=== PATIENT | male | born 1955 | race Caucasian/White ===

== ENCOUNTER 2018-01-17 17:27 | Inpatient (IN) | payer OTHER ==
[2018-01-17] MEDS ORDERED: oxyCODONE TAB* 5 MG TAB PO ONE (17:58)
--- NOTE | 2018-01-17 18:29 | RAD ---
Indication: Left hip injury after fall 2 views of left hip and an AP view the pelvis demonstrates suggestion of an impacted fracture of the left femoral neck. Hip joint demonstrates degenerative change. Pelvic ring is intact. IMPRESSION: Likely impacted fracture of left femoral neck.
--- NOTE | 2018-01-17 18:56 | ED ---
Lower Extremity - HPI Summary HPI Summary: Patient complains of mechanical fall onto left side with subsequent left hip pain. Patient states unable to ambulate. Denies any other injury or pain. No anti-coag. Medical history is none. - History of Current Complaint Chief Complaint: EDHipPelvisInjury Stated Complaint: LT HIP INJURY Time Seen by Provider: 01/17/18 17:38 Hx Obtained From: Patient Mechanism Of Injury: Fall From A Standing Position Onset of Pain: Immediate Onset/Duration: Hours Severity Currently: Severe Pain Intensity: 8 Pain Scale Used: 0-10 Numeric Timing: Constant Location: Is Discrete @ Character Of Pain: Throbbing Associated Signs And Symptoms: Positive: Negative Aggravating Factor(s): Movement Alleviating Factor(s): Rest Able to Bear Weight: No - Allergies/Home Medications Allergies/Adverse Reactions: Allergies Allergy/AdvReac Type Severity Reaction Status Date / Time No Known Allergies Allergy Verified 01/17/18 17:36 PMH/Surg Hx/FS Hx/Imm Hx Endocrine/Hematology History: Denies: Hx Anticoagulant Therapy, Hx Sickle Cell Disease Cardiovascular History: Denies: Other Cardiovascular Problems/Disorders Respiratory History: Reports: Hx Asthma - HAS RESCUE INHALER GI History: Denies: Other GI Disorders History: Reports: Hx Kidney Stones - 3 YRS AGO Denies: Other Problems/Disorders Musculoskeletal History: Denies: Other Musculoskeletal History Sensory History: Reports: Hx Cataracts - LEFT EYE, SMALL ONE STARTING ON RIGHT EYE, Hx Contacts or Glasses - GLASSES, Hx Glaucoma Denies: Hx Hearing Aid Opthamlomology History: Reports: Hx Cataracts - LEFT EYE, SMALL ONE STARTING ON RIGHT EYE, Hx Contacts or Glasses - GLASSES, Hx Glaucoma Neurological History: Denies: Other Neuro Impairments/Disorders - Cancer History Hx Chemotherapy: No - Surgical History Surgery Procedure, Year, and Place: 1986 - TESTICULAR TORSION, [place] , LEFT CATARACT, [facility] Hx Anesthesia Reactions: No Infectious Disease History: Yes Infectious Disease History: Denies: Traveled Outside the [place] in Last 30 Days - Social History Alcohol Use: Weekly Substance Use Type: Reports: None Smoking Status (MU): Never Smoked Tobacco Review of Systems Constitutional: Negative Eyes: Negative ENT: Negative Cardiovascular: Negative Respiratory: Negative Gastrointestinal: Negative Genitourinary: Negative Musculoskeletal: Other Skin: Negative Neurological: Negative Psychological: Normal All Other Systems Reviewed And Are Negative: Yes Physical Exam - Summary Physical Exam Summary: No ecchymosis, erythema, extra warmth, swelling, deformity noted to left hip. Mildly tender to palpation. Patient will not flex or extend left hip. PMS intact distally. Legs are equal length, nonrotated. Triage Information Reviewed: Yes Vital Signs On Initial Exam: Initial Vitals Temp Pulse Resp BP Pulse Ox 99.0 F 56 16 130/65 100 01/17/18 17:30 01/17/18 17:30 01/17/18 17:30 01/17/18 17:30 01/17/18 17:30 Vital Signs Reviewed: Yes Appearance: Positive: Well-Appearing Skin: Positive: Warm Head/Face: Positive: Normal Head/Face Inspection Eyes: Positive: Normal Neck: Positive: Supple Respiratory/Lung Sounds: Positive: Clear to Auscultation Cardiovascular: Positive: Normal Abdomen Description: Positive: Nontender Musculoskeletal: Positive: Normal Neurological: Positive: Normal Psychiatric: Positive: Normal AVPU Assessment: Alert - Plessis Coma Scale Best Eye Response: 4 - Spontaneous Best Motor Response: 6 - Obeys Commands Best Verbal Response: 5 - Oriented Coma Scale Total: 15 Diagnostics - Vital Signs Vital Signs Temp Pulse Resp BP Pulse Ox 01/17/18 17:30 99.0 F 56 16 130/65 100 - Laboratory Result Diagrams: 01/17/18 19:34 01/17/18 19:34 Lab Statement: Any lab studies that have been ordered have been reviewed, and results considered in the medical decision making process. - Radiology hip Xray Interpretation: Positive (See Comments) - Likely impacted fracture of the left small neck Radiology Interpretation Completed By: Radiologist femur Xray Interpretation: Positive (See Comments) - Fracture left femoral neck extending to greater tuberosity Radiology Interpretation Completed By: Radiologist cxr Xray Interpretation: No Acute Changes Radiology Interpretation Completed By: Radiologist - CT pelvis w/o CT Interpretation: Positive (See Comments) - Oblique fracture through the left femoral neck. Fracture fragments are slightly distracted. Fracture José Luis portions of the greater trochanter extending into the subcapital region there is no significant angulation. No significant hematoma - EKG 1 Cardiac Rate: NL EKG Rhythm: Sinus Rhythm ST Segment: Normal Ectopy: None Lower Extremity Course/Dx - Course Course Of Treatment: Patient complains of mechanical fall onto left side with subsequent left hip pain. Patient states unable to ambulate. Denies any other injury or pain. No anti-coag. Medical history is none. PE: No ecchymosis, erythema, extra warmth, swelling, deformity noted to left hip. Mildly tender to palpation. Patient will not flex or extend left hip. PMS intact distally. Legs are equal length, nonrotated. Vital signs within normal limits and stable. Labs and imaging unremarkable other than left femoral neck fracture. Discussed patient with Dr Sheehan orthopedics and Dr Chan hospitalist. Patient will be admitted. - Diagnoses Provider Diagnoses: Fracture of femoral neck, left Discharge - Sign-Out/Discharge Documenting (check all that apply): Patient Departure - Discharge Plan Condition: Stable Disposition: ADMITTED TO [facility] - Billing Disposition and Condition Condition: STABLE Disposition: Admitted to [facility]
[2018-01-17 19:47] LABS: ABS Basophils 0 10^3/ul (0-0.2); ABS Eosinophils 0.1 10^3/ul (0-0.6); ABS Lymphocytes 0.7 10^3/ul (1.0-4.8); ABS Monocytes 0.4 10^3/ul (0-0.8); ABS Neutrophils 7.6 10^3/ul (1.5-7.7); ABS Nucleated RBC 0 10^3/ul; Eosinophil % 0.9 % (0-6); Hematocrit 41 % (42-52); Hemoglobin 14.4 g/dl (14.0-18.0); Lymphocyte % 8.3 % (25-47); Mean Corpuscular HGB Conc 35 g/dl (31-36); Mean Corpuscular Hemoglobin 31 pg (27-31); Mean Corpuscular Volume 90 fL (80-94); Nucleated Red Blood Cells % 0.2; Platelet Count 185 10^3/ul (150-450); Red Blood Count 4.59 10^6/ul (4.00-5.40); Red Cell Distribution Width 14 % (10.5-15); White Blood Count 8.8 10^3/ul (3.5-10.8)
--- NOTE | 2018-01-17 19:50 | RAD ---
Indication: Preop left hip fracture. Single frontal view of the chest performed at 1932 hours was reviewed. No prior study is available for comparison. No mediastinal shift is noted. Heart is of normal size and configuration. Lung lechuga appear clear. IMPRESSION: NO ACTIVE CARDIOPULMONARY DISEASE IS NOTED.
--- NOTE | 2018-01-17 19:52 | RAD ---
Indication: Left fracture. 2 views of the left hip are reviewed. Again noted is an intertrochanteric fracture of the left femoral neck with probable extension to the greater tuberosity. This is seen on the lateral view. The remainder of the femur is otherwise unremarkable. IMPRESSION: FRACTURE OF THE NECK OF LEFT FEMUR WHICH APPEARS TO EXTEND TO THE GREATER TUBEROSITY LATERAL VIEW. THE REMAINDER OF THE FEMUR IS OTHERWISE UNREMARKABLE.
[2018-01-17 19:58] LABS: EGFR Non-African American 89.2 (>60); INR 1.01 (0.77-1.02)
[2018-01-17] MEDS ORDERED: Acetaminophen TAB* 325 MG PO PRN (20:11)
[2018-01-17] MEDS ORDERED: oxyCODONE/Acetamin 5/325 MG* TAB PO PRN (20:11)
[2018-01-17] MEDS ORDERED: Ondansetron INJ* 2 MG/ML VIAL IV PRN (20:11)
[2018-01-17] MEDS ORDERED: Cyclobenzaprine TAB* 10 MG PO PRN (20:20)
[2018-01-17] MEDS ORDERED: Albuterol HFA INHALER* 8 gm MDI INH PRN (20:20)
[2018-01-17] MEDS ORDERED: Heparin VIAL(*) 5000 UNITS/ML VIAL (FIVE THOUSAND) SUBCUT SCH (22:00)
--- NOTE | 2018-01-17 22:05 | CONS ---
CC: Dr. Sheehan CONSULTATION REPORT: DATE OF CONSULT: 01/17/18 CHIEF COMPLAINT: Left hip pain. HISTORY OF PRESENT ILLNESS: Hermes is a 62-year-old man, who fell on to his left side when trying to p ut the cover on to his pool. This occurred a few hours ago. He complains of left hip pain and some a brasions on his left knee and left arm. He was brought to the emergency room and had some x-rays, wh ich showed an impacted fracture of the femoral neck and a greater trochanteric fracture. He is other anna healthy. He denies other injuries. Denies loss of consciousness. MEDICATIONS: His only medications are: 1. Baby aspirin. 2. Calcium. PHYSICAL EXAM: He is a healthy-appearing very pleasant man in mild distress at rest. He cannot bear weight on his left lower extremity. He can move his hip but it is painful. He has a palpable dorsa lis pedis and posterior tibial pulse. There is no swelling in his left lower extremity. His neurova scular function is intact. DIAGNOSTIC STUDIES: I reviewed his x-rays, AP and lateral, of the left hip and left femur, which brooklynn w a valgus impacted femoral neck fracture plus a greater trochanteric fracture. IMPRESSION: Left hip fracture. PLAN: Plan is for CT scan to further evaluate the fracture fragments. Consulted with my colleague, Dr. Brown, who feels a trochanteric fixation nail is the best course of action. We will reevaluate a fter the CT scan and plan for surgical treatment. The surgical procedure, risks, and benefits were e xplained to the patient today. [id number]/[facility] #: [id number]
[2018-01-17] MEDS: oxyCODONE/Acetamin 5/325 MG* TAB PO PRN (22:19)
[2018-01-17] MEDS: PTO:Dorzolamide/Timolol OPTH (NF) 10 ML BOT BOTH EYES SCH (22:21)
[2018-01-17 22:57] LABS: Urine Appearance Clear; Urine Blood Negative (Negative); Urine Color Yellow; Urine Ketones Trace (Negative); Urine Protein Negative (Negative); Urine Specific Gravity 1.019 (1.010-1.030); Urine Urobilinogen Negative (Negative)
--- NOTE | 2018-01-17 23:52 | HP ---
CC: Dr. Darryn Andino * MEDICINE HISTORY AND PHYSICAL: DATE OF ADMISSION: 01/17/18 PROVIDER: Coleman Irby NP ATTENDING PHYSICIAN: Dr. Buddy Chan * (as dictated by Coleman Irby NP ). PRIMARY CARE PROVIDER: Dr. Darryn Andino. CONSULTING ORTHOPEDIC SURGEON: Dr. Floresita Sheehan. CHIEF COMPLAINT: Fall with left leg pain. HISTORY OF PRESENT ILLNESS: Mr. Perez is a 62-year-old male, who presented with left leg pain after a fall. He was attempting to close a wet pool with a cover this evening, was stepping over the diving board, misstepped, and lost his balance, and instead of falling into the pool, he went the other way, and came down on his left leg. He states that he felt immediate pain and came in for further evaluation. He was found to have a left femoral neck fracture. Prior to this fall, he denies any recent health concerns. He denies any recent fever , chills, cold, or flu-like symptoms. He denies chest pain, shortness of breath , abdominal pain, nausea, vomiting, diarrhea, or dysuria. He denies any focal weakness, joint pains, muscle pains, rashes, or other concerns. Giving the acute nature of his fracture, Hospital Medicine was consulted for admission. Orthopedic services were notified. PAST MEDICAL HISTORY: Includes: 1. Asthma. 2. Cholelithiasis. 3. History of left Lopez's cyst. PAST SURGICAL HISTORY: Includes cataract surgery; right bimalleolar fracture, status post surgical repair. HOME MEDICATIONS: 1. Ventolin 2 puffs inhaled p.r.n. daily. 2. Cosopt 1 drop both eyes b.i.d. 3. Calcium citrate 150 mg daily. 4. Aspirin 81 mg daily. ALLERGIES: No known allergies. FAMILY HISTORY: Reports a father, who of an IL, and a mother with a history of glaucoma. SOCIAL HISTORY: He denies any history of tobacco use. He reports 1 or 2 drinks a couple of nights a week. He denies any history of illicit drug use. He is a traveling salesman. He is and lives with his . They own a home in both [place], [place] and in [place], and split their time between the 2 homes. His , Kaylan Perez, is his surrogate decision maker in the event of emergency. REVIEW OF SYSTEMS: An 11-point review of systems was completed. All pertinent positives and negatives as per HPI. All others not mentioned are negative. PHYSICAL EXAMINATION GENERAL: This is a very pleasant male, who appears his stated age. He is lying in ED stretcher, in no acute distress. VITAL SIGNS: Temperature 99, pulse rate 56, respiratory rate 16, blood pressure 130/65, and O2 saturation 100% on room air. HEENT: Head is atraumatic, normocephalic. Face is symmetrical. Pupils are equal, round, and reactive to light. Extraocular movements are intact. Oral mucosa is moist. NECK: Supple. No JVD noted. No lymphadenopathy appreciated. LUNGS: Clear to auscultation anteriorly. CARDIAC: Normal S1 and S2 heart sounds with regular rate and rhythm. No murmurs, rubs, or gallops. There is no peripheral edema. Distal pulses are 2+ and symmetric and equal. ABDOMEN: Soft, nontender, nondistended with normoactive bowel sounds in all 4 quadrants. There is no hepatosplenomegaly. MUSCULOSKELETAL: There is no clubbing or cyanosis. The left leg is in flexion secondary to pain. There is good distal sensation to the affected extremity. There is good color and movement. Full range of motion of the other extremity is noted. NEUROLOGIC: No focal deficits noted. He is able to move all extremities, although left lower extremity is limited secondary to pain. Sensation is intact to light touch to the lower extremities. Speech is fluent. He is alert and oriented x3. Cranial nerves II through XII are grossly intact. SKIN: Appears grossly intact. There are some minor abrasions to the guido and some small bruises noted. DIAGNOSTIC STUDIES/LAB DATA: CBC: WBC 8.8, hemoglobin , hematocrit 41, platelet count 185. INR is 1.01. CMP: Sodium 141, potassium 3.8, chloride 108 , carbon dioxide 27, BUN 18, creatinine 0.87, glucose 107, lactic acid 0.8, calcium 9.6. Total bilirubin 0.9, AST 18, ALT 14, alk phos 59. Troponin 0.00. Femur x-ray again shows fracture of the neck of the left femur, which appears to extend to the greater tuberosity on lateral view, the remainder of the femur is otherwise unremarkable. Hip and pelvis x-ray confirm this last report of likely impacted fracture of the left femoral neck. Chest x-ray shows no acute pathology. EKG reviewed and shows no concern for ST or T wave changes consistent with ischemia. ASSESSMENT AND PLAN: This is a 62-year-old male with no significant past medical history, who presents today following a fall with subsequent left femoral neck fracture. He will be admitted as an inpatient to the surgical floor. Plan is as follows: 1. Left femoral neck fracture. Orthopedics has been notified and he will have an Ortho consult likely this evening with a plan to have the patient go to surgery tomorrow. He will receive 1 heparin injection subcu for DVT prophylaxis. He will be made n.p.o. after midnight in anticipation of possible surgery. Continue with pain management. He is ordered morphine and Percocet, and SCDs to the unaffected extremity. He will be on bed rest until cleared by Ortho or otherwise. 2. Preoperative clearance. This is a 62-year-old male with no significant cardiac history and no history of diabetes or cerebrovascular disease. He has a RCRI score of 0 which is a class 1 risk, which indicates a 0.4% risk of major cardiac event. He has a functional METs score of greater than 4 as he is able to climb up a flight of stairs. He is able to mow the lawn with a push mower for 3 to 4 hours and is independent and able to tolerate strenuous exercise. He has good rehab capability. He is on aspirin with his last dose on 01/16/18. He did not take his aspirin today on 01/17/18. This will continued to be held. His EKG is normal with no concerning ST or T wave changes. His chest x-ray is normal and without acute pathology. At this time, he is medically optimized for surgery as no other major concerns or risks have been identified. 3. History of asthma. He reports that he has used his inhaler, maybe 14 to 15 times per year, is well controlled and intermittent. We will continue p.r.n. use here in the hospital if needed, but this is not an active concern. 4. History of glaucoma. Continue Cosopt eye drops. 5. Fluids, electrolytes, and nutrition. He is ordered a regular diet this evening and will be n.p.o. after midnight. We will order fluids after midnight. 6. DVT prophylaxis. He is ordered SCDs and subcu heparin for this evening. 7. Code status. He is a full code. 8. Disposition. Will be determined following surgery and rehab . TIME SPENT: Time spent on this admission was approximately 60 minutes, more than half the time was spent [id number] with the patient and family member obtaining history and physical, performing physical examination, and reviewing the plan of care. Plan of care was also reviewed with my attending, Dr. Chan, who is in agreement. COLEMAN IRBY, COGENERATION OPERATOR [id number]/[facility] #: [id number] TANISHA
[2018-01-18] MEDS ORDERED: NS 0.9% 1000 ML* 1,000 ML IV SCH (00:01)
[2018-01-18] MEDS: Morphine INJ* 2 MG/ML 1 ML SYRINGE (TWO MG - NEW SYRINGE VERSION) IV PRN ×2 (03:43→07:24)
[2018-01-18] MEDS: NS 0.9% 1000 ML* 1,000 ML IV SCH (06:02)
[2018-01-18] MEDS: Calcium Citrate TAB* 200 MG PO SCH ×2 (08:14→09:16)
[2018-01-18] MEDS: PTO:Dorzolamide/Timolol OPTH (NF) 10 ML BOT BOTH EYES SCH ×3 (08:14→19:26)
--- NOTE | 2018-01-18 08:40 | PN ---
Subjective Date of Service: 01/18/18 Interval History: Mr. Perez states that his left hip pain is well controlled at this point. He denies other complaint. He reports being generally very active though he does not have an exercise routine. His described him as a "weekend warrior" in their yard and home. Objective Active Medications: Acetaminophen (Tylenol Tab*) 650 mg PO Q4H PRN Albuterol (Ventolin Hfa Inhaler*) 2 puff INH Q4HR PRN Calcium Citrate (Citracal Tab*) 200 mg PO DAILY MATTHEW Cyclobenzaprine HCl (Flexeril Tab*) 10 mg PO TID PRN Dorzolamide/Timolol (Cosopt (Nf)) 1 drop BOTH EYES BID MATTHEW Sodium Chloride (Ns 0.9% 1000 Ml*) 1,000 mls @ 75 mls/hr IV PER RATE MATTHEW Morphine Sulfate (Morphine Inj ((Syringe))*) 2 mg IV Q4H PRN Ondansetron HCl (Zofran Inj*) 4 mg IV Q6H PRN Oxycodone/Acetaminophen (Percocet 5/325 Tab*) 1 tab PO Q4H PRN Oxycodone/Acetaminophen (Percocet 5/325 Tab*) 2 tab PO Q4H PRN Vital Signs: Temp Pulse Resp BP Pulse Ox 97.8 F 81 12 125/75 97 01/18/18 07:48 01/18/18 07:48 01/18/18 07:48 01/18/18 07:48 01/18/18 07:48 Oxygen Devices in Use Now: None Appearance: Male sitting up in bed with at bedside in NAD Eyes: No Scleral Icterus Ears/Nose/Mouth/Throat: Mucous Membranes Moist Neck: Trachea Midline Respiratory: Symmetrical Chest Expansion and Respiratory Effort, Clear to Auscultation Cardiovascular: NL Sounds; No Murmurs; No JVD, No Edema Abdominal: NL Sounds; No Tenderness; No Distention Extremities: No Edema Skin: No Rash or Ulcers Neurological: Alert and Oriented x 3, NL Muscle Strength and Tone Nutrition: Taking PO's Result Diagrams: 01/17/18 19:34 01/17/18 19:34 Assess/Plan/Problems-Billing Assessment: Mr. Perez is a 62 yo M with a PMH of asthma who was admitted on 01/17/18 after a fall with a left hip fracture. - Patient Problems (1) Closed left hip fracture Comment: - Ortho consulted, surgery postponed per Dr. Sheehan. May have surgery as early as Friday. - Pain meds prn with a bowel regimen. - Patient has no history of CAD and regularly obtains more than 4 METS of activity without chest pain. According to the RCRI, patient has a 0.4% risk of adverse cardiac event. No further testing is indicated. (2) Asthma Comment: - No evidence of exacerbation. - Albuterol available prn. (3) DVT prophylaxis Comment: (4) Full code status Comment: Status and Disposition: Inpatient. May need rehab but anticipate discharge to home when medically stable.
[2018-01-18] MEDS: oxyCODONE/Acetamin 5/325 MG* TAB PO PRN ×4 (09:16→23:04)
--- NOTE | 2018-01-18 09:55 | RAD ---
Indication: Left hip fracture. CT of the pelvis was obtained in the axial plane. Sagittal and coronal reconstructed images were obtained. The pelvic ring is intact with no evidence of fracture. The right hip demonstrates no evidence of fracture. There is an impacted fracture of the left femoral neck. There is an oblique fracture extending from the left femoral neck to the greater trochanter. Pelvic ring is intact. No fractures are noted. The pelvic organs are grossly unremarkable. Degenerative changes of the lumbar spine are unremarkable. IMPRESSION: Impacted fracture of the neck of the femur within additional oblique fracture line extending from the medial neck of the femur to the greater trochanter laterally. No significant hematoma is noted.
[2018-01-19] MEDS: oxyCODONE/Acetamin 5/325 MG* TAB PO PRN ×3 (05:43→22:55)
[2018-01-19] MEDS ORDERED: Famotidine IV* 10 MG/ML 2 ML (20 mg) IV ONE ×2 (08:05→09:33)
[2018-01-19] MEDS: Calcium Citrate TAB* 200 MG PO SCH (08:19)
[2018-01-19] MEDS: PTO:Dorzolamide/Timolol OPTH (NF) 10 ML BOT BOTH EYES SCH ×2 (08:21→19:28)
[2018-01-19] MEDS: NS 0.9% 1000 ML* 1,000 ML IV SCH (08:24)
[2018-01-19] MEDS ORDERED: Buffered Lidocaine 0.9% SYRIN* 5 ML/SYR SYRINGE INTRADERM ONE (09:33)
[2018-01-19] MEDS ORDERED: Dexamethasone IV* 4 MG/ML 1 ML (4 MG) IV SLOW PU ONE (09:33)
--- NOTE | 2018-01-19 10:22 | PN ---
Subjective Date of Service: 01/19/18 Interval History: Patient seen and examined, pending OR today. States hip is "uncomfortable" but tolerable. No complaints of chest pain, no SOB, no n/v. Remains NPO. Objective Active Medications: Acetaminophen (Tylenol Tab*) 650 mg PO Q4H PRN PRN Reason: FEVER/PAIN Albuterol (Ventolin Hfa Inhaler*) 2 puff INH Q4HR PRN PRN Reason: SOB/WHEEZING Calcium Citrate (Citracal Tab*) 200 mg PO DAILY [facility] Last Admin: 01/19/18 08:19 Dose: Not Given Cyclobenzaprine HCl (Flexeril Tab*) 10 mg PO TID PRN PRN Reason: SPASMS - MUSCLE Dorzolamide/Timolol (Cosopt (Nf)) 1 drop BOTH EYES BID [facility] Last Admin: 01/19/18 08:21 Dose: 1 drop Sodium Chloride (Ns 0.9% 1000 Ml*) 1,000 mls @ 75 mls/hr IV PER RATE [facility] Last Admin: 01/19/18 08:24 Dose: 75 mls/hr Lactated Ringer's (Lactated Ringers 1000 Ml Bag*) 1,000 mls @ 125 mls/hr IV PER RATE [facility] Morphine Sulfate (Morphine Inj ((Syringe))*) 2 mg IV Q4H PRN PRN Reason: PAIN - BREAKTHROUGH Last Admin: 01/18/18 07:24 Dose: 2 mg Ondansetron HCl (Zofran Inj*) 4 mg IV Q6H PRN PRN Reason: NAUSEA/VOMITING Oxycodone/Acetaminophen (Percocet 5/325 Tab*) 1 tab PO Q4H PRN PRN Reason: PAIN - MILD TO MODERATE Oxycodone/Acetaminophen (Percocet 5/325 Tab*) 2 tab PO Q4H PRN PRN Reason: PAIN - MODERATE TO SEVERE Last Admin: 01/19/18 05:43 Dose: 2 tab Vital Signs - 8 hr 01/19/18 01/19/18 01/19/18 03:39 05:43 07:19 Temperature 97.8 F 98.2 F Pulse Rate 78 75 Respiratory 16 18 18 Rate Blood Pressure 136/71 144/82 (mmHg) O2 Sat by Pulse 97 99 Oximetry 01/19/18 01/19/18 07:50 08:26 Temperature Pulse Rate Respiratory 18 18 Rate Blood Pressure (mmHg) O2 Sat by Pulse Oximetry Oxygen Devices in Use Now: None Appearance: alert, well appearing, NAD Eyes: No Scleral Icterus, PERRLA Ears/Nose/Mouth/Throat: Clear Oropharnyx, - - dry oral mucosa Neck: NL Appearance and Movements; NL JVP, Trachea Midline Respiratory: Symmetrical Chest Expansion and Respiratory Effort, Clear to Auscultation Cardiovascular: NL Sounds; No Murmurs; No JVD, RRR, No Edema Extremities: No Edema, No Clubbing, Cyanosis, - - tender orver left hip and thigh Skin: No Rash or Ulcers Neurological: Alert and Oriented x 3, NL Sensation Nutrition: - - NPO for procedure Result Diagrams: 01/17/18 19:34 01/17/18 19:34 Diagnostic Imaging: Patient Name: ELDON CUEVAS Medical Record#: [id number] Ordering Physician: Floresita Sheehan MD Acct.#: [id number] : 1955 Age: 62 Sex: M Location: SURGICAL STAY UNIT Exam Date: 01/17/182126 ADM Status: ADM IN Order Information: CT PELVIS W/O Accession Number: [id number] CPT: 38444 Indication: Left hip fracture. CT of the pelvis was obtained in the axial plane. Sagittal and coronal reconstructed images were obtained. The pelvic ring is intact with no evidence of fracture. The right hip demonstrates no evidence of fracture. There is an impacted fracture of the left femoral neck. There is an oblique fracture extending from the left femoral neck to the greater trochanter. Pelvic ring is intact. No fractures are noted. The pelvic organs are grossly unremarkable. Degenerative changes of the lumbar spine are unremarkable. IMPRESSION: Impacted fracture of the neck of the femur within additional oblique fracture line extending from the medial neck of the femur to the greater trochanter laterally. No significant hematoma is noted. <Electronically signed by Laura Avila MD in OV> 01/18/18951 Dictated By: Laura Avila MD Dictated Date/Time: 01/18/18951 Transcribed Date/Time: 01/18/1846 Copy to: Assess/Plan/Problems-Billing Assessment: This is a 62 yo M with a PMHx of asthma who was admitted on 01/17/18 after a fall with a left hip fracture. - Patient Problems (1) Closed left hip fracture Code(s): S72.002A - FRACTURE OF UNSP PART OF NECK OF LEFT FEMUR, INIT SNOMED Code(s): 984875354 Comment: - s/p mechanical fall with impacted fracture of the neck of the femur with additional oblique fracture - Plan for OR today with Dr. Fuentes - Continue pain control with bowel regimen - Remains medically optimized for procedure today - PT/OT consults post op (2) Asthma Code(s): J45.909 - UNSPECIFIED ASTHMA, UNCOMPLICATED SNOMED Code(s): 849208850 Comment: - No evidence of exacerbation - Albuterol available prn (3) DVT prophylaxis Code(s): NLQ4910 - SNOMED Code(s): 334361345 Comment: - SCDs for now - Prophy per ortho post-op (4) Full code status Code(s): Z78.9 - OTHER SPECIFIED HEALTH STATUS SNOMED Code(s): 453817043 Comment: Status and Disposition: Remain inpatient for OR today.
[2018-01-19] MEDS ORDERED: fentaNYL* 50 MCG/ML 5 ML VIAL (250 MCG VIAL) ONE (12:21)
[2018-01-19] MEDS ORDERED: Midazolam* 1 MG/ML 2 ML VIAL (2 MG) ONE (12:22)
[2018-01-19] MEDS ORDERED: Dexamethasone IV* 4 MG/ML 1 ML (4 MG) ONE (12:54)
[2018-01-19] MEDS ORDERED: Famotidine IV* 10 MG/ML 2 ML (20 mg) ONE (12:54)
[2018-01-19] MEDS ORDERED: ceFAZolin 2 GM PREMIX (*) 2 GM/50 ML BAG IVPB ONE (13:25)
[2018-01-19] MEDS ORDERED: Propofol* 10 MG/ML 20 ML BTL IV PUSH ONE (14:46)
[2018-01-19] MEDS ORDERED: Bupivacaine-MPF SPINAL* 7.5 MG/ML - 2ML AMP ONE (14:47)
[2018-01-19] MEDS ORDERED: Lidocaine 2% PF * 5 ML VIAL ONE (14:47)
[2018-01-19] MEDS ORDERED: Bupivacaine 0.25% W/EPI* 10 ML SDV ONE (14:54)
[2018-01-19] MEDS ORDERED: DiMENhydriNATE IV* 50 MG/ML VIAL IV PUSH PRN (15:27)
[2018-01-19] MEDS ORDERED: Naloxone* 0.4 MG/ML 1 ML VIAL IV PRN (15:27)
[2018-01-19] MEDS ORDERED: fentaNYL* 50 MCG/ML 2 ML VIAL (100 MCG VIAL) IV PRN (15:27)
--- NOTE | 2018-01-19 17:09 | RAD ---
INDICATION: ORIF LEFT hip fracture. COMPARISON: January 17, 2018 CT TECHNIQUE: 73.4 seconds fluoroscopy. FINDINGS: Spot images document placement of a gamma nail across the impacted femoral neck fracture. Resulting anatomic alignment. IMPRESSION: Procedural fluoroscopy. CPT II Codes: G9500
[2018-01-19] MEDS: ceFAZolin 1 GM in Dextrose (*) 1 GM/50 ML BAG IVPB SCH (22:08)
--- NOTE | 2018-01-20 00:23 | OP ---
DATE OF OPERATION: 01/19/18 - ROOM #350 DATE OF : 57 SURGEON: Dale Meraz MD NOC TECHNICIAN: ALEXANDRA Mcgregor ANESTHESIA: Spinal with sedation. PRE-OP DIAGNOSIS: Left proximal femur fracture. POST-OP DIAGNOSIS: Left proximal femur fracture. OPERATIVE PROCEDURE: Short Gamma nail, left femur. ESTIMATED BLOOD LOSS: Less than 100 cc. COMPLICATIONS: None. HARDWARE: Short Gamma nail 11 x 1800 mm x 130 degrees with 95 mm lag screw and one distal locking screw. SUMMARY: Mr. Perez is a 62-year-old male who had tripped over his dive board when rolling up the pool cover on Friday. He had significant pain over the left hip and was brought to the emergency room here at [facility] [place] X-rays were taken which found an odd fracture of the proximal femur. On first inspection on the pelvis view, it could be seen where he has a valgus impacted proximal femur fracture. On the lateral view of the hip, there was a fracture line that continued downward. CAT defined this nicely. Dr. Sheehan had been international logistics analyst and we discussed this with Dr. Brown and they had discussed with Mr. Perez placing a gamma nail to hold his fracture in place while this heals. I had OR time on Friday and Dr. Sheehan had texted me asking if I will be able to add him on and concerning that I had two cases and the OR did have time available. So, I did accept him to be added on to the OR schedule. When I met Mr. Perez earlier today, I showed Mr. Perez and his the x-rays and discussed with them that this is quite the odd fracture. They had several questions and these were all answered. I warned him that we are still worried about bony healing and considering that there appears to be a valgus impacted hip fracture, he still may go on to AVN and need to have this revised to a total hip arthroplasty. Other risks of surgery such as infection, scar formation, stiffness, DVT were some of the risks that were discussed. He wished to proceed. DESCRIPTION OF PROCEDURE: The patient was brought to the OR and spinal anesthesia was introduced and a Zapata catheter was then also placed. He was positioned on the fracture table and C-arm was brought in and used to make sure I had good views of the hip, both in AP and lateral views. Once I was pleased with the x-ray views, left hip area was prepped and then draped. Skin over the incision area was infiltrated using 10 cc 0.25% Marcaine with epinephrine and additional 20 cc would be used through the case. Incision was made a little bit above the greater trochanter and in line with the femoral canal. Incision was carried down through the skin and subcutaneous fat. I could feel the fascia and this was bluntly split using a Metzenbaum scissor and then I could come down to the tip of the greater trochanter. C-arm was used to confirm my positioning and then I spread the scissors a little bit coming back, so that I would have a little bit of a tract to come downwards. Awl was then placed and adjusted using C-arm guidance until the entry hole was right at the tip of the greater troch. Awl was then slowly pushed into the proximal bone and alignment was checked in AP and lateral views to make sure I had a good pass where the awl was being pushed downwards on. Once the entire tip of the awl was in, guidewire was placed and was able to run the guidewire down the shaft quite easily. Because it did go easily, I did check with the C-arm to make sure it was within the canal and it was. Considering that he is a bit younger and appeared to have a fairly good cortex, I also wanted the ball tip, so that I could ream to make sure that we would not split his femur. Proximal reamer that is always needed for the gamma nail was then run and seated. Beginning with the reamer, a 10, 11, 12, and 13 reamer was done. At 12, we did have significant chatter. From preoperative templating, I had wanted a highest angle possible because of the valgus impaction and this was the 130 degree gamma nail. Gamma nail was then pressed into place and for the last centimeters to, I did need to use the mallet, but not to an outrageous degree. He moved nicely with each tap. Once I thought that the slot was nicely lined up, arm was adjusted so that I thought I would come right into the neck and incision was made right over where the guides pushed into the skin. I was able to push almost up against cortex and guidewire was just started. It was seen was aiming posteriorly to the neck and then I dropped hand some and then this was good, but I was still looking to be may be posterior. So, I dropped again and this time, I appeared to come right down the middle of the neck and into the head. Guidewire was run under the lateral guidance until I came close to the subchondral surface. This was switched into the AP and I liked my positioning on the AP as well. Portion sticking out was measured and a 95 screw was called for. Screw was then placed and a nice bite was obtained. Locking screw was then locked in proximally after the hip screw was nicely seated. Coming down- wards, guides were shifted, so that I could do the distal lock and again skin was infiltrated with Marcaine, incised and then the guide pushed downwards. Drill was then run and the hole was then measured 32.5 screws was called for and again, nice bite was obtained. All instrumentation was removed and final C- arm pictures were taken and saved in both AP and lateral views. Wounds were irrigated using a bulb syringe and the proximal fascia was closed using 2-0 Vicryl sutures. Subcutaneous tissues in the top two wounds were reapproximated with 2-0 Vicryl and all three were closed using beena. Sterile dressing was applied in the OR. The patient was then awakened, and stable on transfer to the recovery room. [id number]/[facility] #: [id number] TANISHA
[2018-01-20] MEDS: ceFAZolin 1 GM in Dextrose (*) 1 GM/50 ML BAG IVPB SCH ×2 (05:45→14:20)
[2018-01-20] MEDS: oxyCODONE/Acetamin 5/325 MG* TAB PO PRN ×4 (05:45→20:43)
[2018-01-20 06:35] LABS: Hematocrit 38 % (42-52); Hemoglobin 13.9 g/dl (14.0-18.0); Mean Platelet Volume 7.6 um3 (7.4-10.4); Platelet Count 178 10^3/ul (150-450)
[2018-01-20 06:49] LABS: EGFR Non-African American 134.4 (>60)
[2018-01-20] MEDS: Calcium Citrate TAB* 200 MG PO SCH (08:20)
[2018-01-20] MEDS: PTO:Dorzolamide/Timolol OPTH (NF) 10 ML BOT BOTH EYES SCH ×2 (08:20→20:43)
[2018-01-20] MEDS: Docusate CAP* 100 MG PO PRN ×2 (08:20→20:43)
[2018-01-20 08:29] LABS: INR 0.98 (0.77-1.02)
[2018-01-20 08:47] LABS: ABS Basophils 0 10^3/ul (0-0.2); ABS Eosinophils 0 10^3/ul (0-0.6); ABS Lymphocytes 0.9 10^3/ul (1.0-4.8); ABS Monocytes 0.7 10^3/ul (0-0.8); ABS Neutrophils 9.7 10^3/ul (1.5-7.7); ABS Nucleated RBC 0 10^3/ul; Eosinophil % 0.1 % (0-6); Lymphocyte % 7.9 % (25-47); Mean Corpuscular HGB Conc 35 g/dl (31-36); Mean Corpuscular Hemoglobin 32 pg (27-31); Mean Corpuscular Volume 89 fL (80-94); Nucleated Red Blood Cells % 0.2; Red Cell Distribution Width 14 % (10.5-15); White Blood Count 11.3 10^3/ul (3.5-10.8)
--- NOTE | 2018-01-20 10:52 | PN ---
Progress Note - Progress Note Date of Service: 01/20/18 SOAP: Subjective: []Patient seen at bedside. He feels very well with little left hip pain. Denies CP, SOB, dizziness, nausea. Objective: []General: Well appearing, NAD LLE: Left hip dressing CDI without surrounding erythema. Thigh is soft. DF/PF intact. Sensation intact throughout LLE. Dp2+ Assessment: []POD 1 sp left hip TFN Plan: []WBAT PT/OT heparin 5000 units sq q 8 hr in house, lovenox x 1 month at DC Vital Signs Temp 98.3 F 01/20/18 07:15 Pulse 89 01/20/18 07:15 Resp 18 01/20/18 10:46 BP 135/86 01/20/18 07:15 Pulse Ox 97 01/20/18 07:15 Intake & Output 01/19/18 01/20/18 01/20/18 18:59 06:59 18:59 Intake Total 2244 1770 1025 Output Total 1705 2000 250 Balance 539 -230 775 Intake: IV Fluids 2194 980 425 LR 1100 980 425 NS (0.9%) 994 NS 100ML, Cefazolin 2G 100 IVPB 50 ABX - CEFAZOLIN 50 Oral 50 740 600 Output: Urine 975 250 Zapata 650 2000 Estimated Blood Loss 80 Other: Estimated Void Medium # Voids 1 Laboratory Last Values WBC 11.3 10^3/ul (3.5-10.8) H 01/20/18 05:17 RBC 4.40 10^6/ul (4.00-5.40) 01/20/18 05:17 Hgb 13.9 g/dl (14.0-18.0) L 01/20/18 05:17 Hct 38 % (42-52) L 01/20/18 05:17 MCV 89 fL (80-94) 01/20/18 05:17 MCH 32 pg (27-31) H 01/20/18 05:17 MCHC 35 g/dl (31-36) 01/20/18 05:17 RDW 14 % (10.5-15) 01/20/18 05:17 Plt Count 178 10^3/ul (150-450) 01/20/18 05:17 MPV 7.6 um3 (7.4-10.4) 01/20/18 05:17 Neut % (Auto) 85.5 % (38-83) H 01/20/18 05:17 Lymph % (Auto) 7.9 % (25-47) L 01/20/18 05:17 [place] % (Auto) 6.3 % (0-7) 01/20/18 05:17 Eos % (Auto) 0.1 % (0-6) 01/20/18 05:17 Baso % (Auto) 0.2 % (0-2) 01/20/18 05:17 Absolute Neuts (auto) 9.7 10^3/ul (1.5-7.7) H 01/20/18 05:17 Absolute Lymphs (auto) 0.9 10^3/ul (1.0-4.8) L 01/20/18 05:17 Absolute Monos (auto) 0.7 10^3/ul (0-0.8) 01/20/18 05:17 Absolute Eos (auto) 0 10^3/ul (0-0.6) 01/20/18 05:17 Absolute Basos (auto) 0 10^3/ul (0-0.2) 01/20/18 05:17 Absolute Nucleated RBC 0 10^3/ul 01/20/18 05:17 Nucleated RBC % 0.2 01/20/18 05:17 INR (Anticoag Therapy) 0.98 (0.77-1.02) 01/20/18 05:16 APTT 34.0 seconds (26.0-36.3) 01/20/18 05:16 Sodium 138 mmol/L (135-145) 01/20/18 05:17 Potassium 3.7 mmol/L (3.5-5.0) 01/20/18 05:17 Chloride 107 mmol/L (101-111) 01/20/18 05:17 Carbon Dioxide 23 mmol/L (22-32) 01/20/18 05:17 Anion Gap 8 mmol/L (2-11) 01/20/18 05:17 BUN 9 mg/dL (6-24) 01/20/18 05:17 Creatinine 0.61 mg/dL (0.67-1.17) L 01/20/18 05:17 Est GFR ( Amer) 162.6 (>60) 01/20/18 05:17 Est GFR (Non-Af Amer) 134.4 (>60) 01/20/18 05:17 BUN/Creatinine Ratio 14.8 (8-20) 01/20/18 05:17 Glucose 113 mg/dL (70-100) H 01/20/18 05:17 Lactic Acid 0.8 mmol/L (0.5-2.0) 01/17/18 19:34 Calcium 9.0 mg/dL (8.6-10.3) 01/20/18 05:17 Total Bilirubin 0.90 mg/dL (0.2-1.0) 01/17/18 19:34 AST 18 U/L (13-39) 01/17/18 19:34 ALT 14 U/L (7-52) 01/17/18 19:34 Alkaline Phosphatase 59 U/L (34-104) 01/17/18 19:34 Troponin I 0.00 ng/mL (<0.04) 01/17/18 19:34 Total Protein 7.6 g/dL (6.4-8.9) 01/17/18 19:34 Albumin 4.2 g/dL (3.2-5.2) 01/17/18 19:34 Globulin 3.4 g/dL (2-4) 01/17/18 19:34 Albumin/Globulin Ratio 1.2 (1-3) 01/17/18 19:34 Urine Color Yellow 01/17/18 22:40 Urine Appearance Clear 01/17/18 22:40 Urine pH 6.0 (5-9) 01/17/18 22:40 Ur Specific [place] 1.019 (1.010-1.030) 01/17/18 22:40 Urine Protein Negative (Negative) 01/17/18 22:40 Urine Ketones Trace (Negative) A 01/17/18 22:40 Urine Blood Negative (Negative) 01/17/18 22:40 Urine Nitrate Negative (Negative) 01/17/18 22:40 Urine Bilirubin Negative (Negative) 01/17/18 22:40 Urine Urobilinogen Negative (Negative) 01/17/18 22:40 Ur Leukocyte Esterase Negative (Negative) 01/17/18 22:40 Urine Glucose Negative (Negative) 01/17/18 22:40 Blood Type A Positive 01/17/18 19:34 Antibody Screen Negative 01/17/18 19:34
--- NOTE | 2018-01-20 13:59 | PN ---
Subjective Date of Service: 01/20/18 Interval History: Patient seen and examined. No acute overnight events. Patient ambulating and tolerating PO. States no SOB, no calf pain, no chest pain, no n/v. Tolerating PO. Objective Active Medications: Acetaminophen (Tylenol Tab*) 650 mg PO Q4H PRN PRN Reason: FEVER/PAIN Albuterol (Ventolin Hfa Inhaler*) 2 puff INH Q4HR PRN PRN Reason: SOB/WHEEZING Calcium Citrate (Citracal Tab*) 200 mg PO DAILY [facility] Last Admin: 01/20/18 08:20 Dose: 200 mg Cyclobenzaprine HCl (Flexeril Tab*) 10 mg PO TID PRN PRN Reason: SPASMS - MUSCLE Docusate Sodium (Colace Cap*) 100 mg PO Q12H PRN PRN Reason: CONSTIPATION Last Admin: 01/20/18 08:20 Dose: 100 mg Dorzolamide/Timolol (Cosopt (Nf)) 1 drop BOTH EYES BID [facility] Last Admin: 01/20/18 08:20 Dose: 1 drop Heparin Sodium (Porcine) (Heparin Vial(*)) 5,000 units SUBCUT Q8HR [facility] Cefazolin Sodium/Dextrose (Kefzol 1 Gm In Dextrose Duplex (*)) 1 gm in 50 mls @ 200 mls/hr IVPB Q8HR [facility] Stop: 01/20/18 14:14 Last Admin: 01/20/18 05:45 Dose: 200 mls/hr Lactated Ringer's (Lactated Ringers 1000 Ml Bag*) 1,000 mls @ 100 mls/hr IV .PER RATE [facility] Last Admin: 01/20/18 03:42 Dose: 100 mls/hr Morphine Sulfate (Morphine Inj ((Syringe))*) 2 mg IV Q4H PRN PRN Reason: PAIN - BREAKTHROUGH Last Admin: 01/18/18 07:24 Dose: 2 mg Ondansetron HCl (Zofran Inj*) 4 mg IV Q6H PRN PRN Reason: NAUSEA/VOMITING Oxycodone/Acetaminophen (Percocet 5/325 Tab*) 1 tab PO Q4H PRN PRN Reason: PAIN - MILD TO MODERATE Oxycodone/Acetaminophen (Percocet 5/325 Tab*) 2 tab PO Q4H PRN PRN Reason: PAIN - MODERATE TO SEVERE Last Admin: 01/20/18 10:46 Dose: 2 tab Vital Signs - 8 hr 01/20/18 01/20/18 01/20/18 07:15 08:00 08:47 Temperature 98.3 F Pulse Rate 89 Respiratory 16 18 18 Rate Blood Pressure 135/86 (mmHg) O2 Sat by Pulse 97 Oximetry 01/20/18 01/20/18 01/20/18 10:46 11:39 13:27 Temperature 98.0 F Pulse Rate 82 Respiratory 18 16 20 Rate Blood Pressure 129/76 (mmHg) O2 Sat by Pulse 99 Oximetry Oxygen Devices in Use Now: None Appearance: alert, NAD Eyes: No Scleral Icterus, PERRLA Ears/Nose/Mouth/Throat: NL Teeth, Lips, Gums, Clear Oropharnyx Neck: NL Appearance and Movements; NL JVP, Trachea Midline Respiratory: Symmetrical Chest Expansion and Respiratory Effort, Clear to Auscultation Cardiovascular: NL Sounds; No Murmurs; No JVD, RRR, No Edema Abdominal: NL Sounds; No Tenderness; No Distention Extremities: No Edema, No Clubbing, Cyanosis Skin: No Rash or Ulcers, - - dressing CDI Neurological: Alert and Oriented x 3, NL Sensation, NL Muscle Strength and Tone Nutrition: Taking PO's Result Diagrams: 01/20/18 05:17 01/20/18 05:17 Diagnostic Imaging: Patient Name: ELDON CUEVAS Medical Record#: [id number] Ordering Physician: Floresita Sheehan MD Acct.#: [id number] : 1955 Age: 62 Sex: M Location: SURGICAL STAY UNIT Exam Date: 01/17/182126 ADM Status: ADM IN Order Information: CT PELVIS W/O Accession Number: [id number] CPT: 69433 Indication: Left hip fracture. CT of the pelvis was obtained in the axial plane. Sagittal and coronal reconstructed images were obtained. The pelvic ring is intact with no evidence of fracture. The right hip demonstrates no evidence of fracture. There is an impacted fracture of the left femoral neck. There is an oblique fracture extending from the left femoral neck to the greater trochanter. Pelvic ring is intact. No fractures are noted. The pelvic organs are grossly unremarkable. Degenerative changes of the lumbar spine are unremarkable. IMPRESSION: Impacted fracture of the neck of the femur within additional oblique fracture line extending from the medial neck of the femur to the greater trochanter laterally. No significant hematoma is noted. <Electronically signed by Laura Avila MD in OV> 01/18/18951 Dictated By: Laura Avila MD Dictated Date/Time: 01/18/18951 Transcribed Date/Time: 01/18/18945 Copy to: Assess/Plan/Problems-Billing Assessment: This is a 62 yo M with a PMHx of asthma who was admitted on 01/17/18 after a fall with a left hip fracture. - Patient Problems (1) Closed left hip fracture Code(s): S72.002A - FRACTURE OF UNSP PART OF NECK OF LEFT FEMUR, INIT SNOMED Code(s): 844223635 Comment: - POD1 ORIF with gamma nail for impacted fracture of the neck of the femur with additional oblique fracture - Continue pain control with bowel regimen - PT/OT daily (2) Asthma Code(s): J45.909 - UNSPECIFIED ASTHMA, UNCOMPLICATED SNOMED Code(s): 685352201 Comment: - No evidence of exacerbation - Albuterol available prn (3) DVT prophylaxis Code(s): TNT2632 - SNOMED Code(s): 878500997 Comment: - HSQ per ortho (4) Full code status Code(s): Z78.9 - OTHER SPECIFIED HEALTH STATUS SNOMED Code(s): 876861617 Comment: Status and Disposition: Remain inpatient, dispo as per ortho, likely home with outpatient PT if needed.
[2018-01-20] MEDS: Heparin VIAL(*) 5000 UNITS/ML VIAL (FIVE THOUSAND) SUBCUT SCH ×2 (14:20→22:29)
[2018-01-20] MEDS ORDERED: Magnesium Hydroxide LIQ* 30 ML UDC PO PRN (16:50)
[2018-01-21 05:45] LABS: Hematocrit 36 % (42-52); Hemoglobin 13.1 g/dl (14.0-18.0); Mean Platelet Volume 7.1 um3 (7.4-10.4); Platelet Count 167 10^3/ul (150-450)
[2018-01-21] MEDS: oxyCODONE/Acetamin 5/325 MG* TAB PO PRN ×2 (06:14→10:54)
[2018-01-21] MEDS: Heparin VIAL(*) 5000 UNITS/ML VIAL (FIVE THOUSAND) SUBCUT SCH (06:15)
--- NOTE | 2018-01-21 08:17 | PN ---
Progress Note - Progress Note Date of Service: 01/21/18 SOAP: Subjective: [] Patient seen at bedside. He feels well and is ready for discharge to home. Denies CP, SOB, dizziness, nausea, leg numbness or calf pain. Objective: []General: Well appearing, NAD LLE: Left hip dressing changed. Incision is CDI without surrounding erythema. DF /PF intact. DP 2+. Sensation intact distally. Capillary refill less than two seconds distally. BL LE Calves supple and nontender without erythema, edema or palpable cords Assessment: []SP left hip TFN Plan: []50% weight bearing LLE until follow up visit DC anticoagulation xarelto 10 mg PO daily x 30 days due to ease of use with patients travel schedule considered Fu Dr aquino in 10-14 days for staple removal and again 2 weeks thereafter for follow up visit. DC to home Vital Signs Temp 97.6 F 01/21/18 07:34 Pulse 86 01/21/18 07:34 Resp 18 01/21/18 10:54 BP 143/89 01/21/18 07:34 Pulse Ox 95 01/21/18 07:34 Intake & Output 01/20/18 01/21/18 01/21/18 18:59 06:59 18:59 Intake Total 1587 940 700 Output Total 550 1100 500 Balance 1037 -160 200 Intake: IV Fluids 507 ABX - CEFAZOLIN 52 LR 455 Oral 1080 940 700 Output: Urine 550 1100 500 Other: Estimated Void Medium # Voids 1 Laboratory Last Values WBC 6.2 10^3/ul (3.5-10.8) 01/21/18 05:30 RBC 4.40 10^6/ul (4.00-5.40) 01/20/18 05:17 Hgb 13.1 g/dl (14.0-18.0) L 01/21/18 05:30 Hct 36 % (42-52) L 01/21/18 05:30 MCV 89 fL (80-94) 01/20/18 05:17 MCH 32 pg (27-31) H 01/20/18 05:17 MCHC 35 g/dl (31-36) 01/20/18 05:17 RDW 14 % (10.5-15) 01/20/18 05:17 Plt Count 167 10^3/ul (150-450) 01/21/18 05:30 MPV 7.1 um3 (7.4-10.4) L 01/21/18 05:30 Neut % (Auto) 85.5 % (38-83) H 01/20/18 05:17 Lymph % (Auto) 7.9 % (25-47) L 01/20/18 05:17 [place] % (Auto) 6.3 % (0-7) 01/20/18 05:17 Eos % (Auto) 0.1 % (0-6) 01/20/18 05:17 Baso % (Auto) 0.2 % (0-2) 01/20/18 05:17 Absolute Neuts (auto) 9.7 10^3/ul (1.5-7.7) H 01/20/18 05:17 Absolute Lymphs (auto) 0.9 10^3/ul (1.0-4.8) L 01/20/18 05:17 Absolute Monos (auto) 0.7 10^3/ul (0-0.8) 01/20/18 05:17 Absolute Eos (auto) 0 10^3/ul (0-0.6) 01/20/18 05:17 Absolute Basos (auto) 0 10^3/ul (0-0.2) 01/20/18 05:17 Absolute Nucleated RBC 0 10^3/ul 01/20/18 05:17 Nucleated RBC % 0.2 01/20/18 05:17 INR (Anticoag Therapy) 0.98 (0.77-1.02) 01/20/18 05:16 APTT 34.0 seconds (26.0-36.3) 01/20/18 05:16 Sodium 138 mmol/L (135-145) 01/20/18 05:17 Potassium 3.7 mmol/L (3.5-5.0) 01/20/18 05:17 Chloride 107 mmol/L (101-111) 01/20/18 05:17 Carbon Dioxide 23 mmol/L (22-32) 01/20/18 05:17 Anion Gap 8 mmol/L (2-11) 01/20/18 05:17 BUN 9 mg/dL (6-24) 01/20/18 05:17 Creatinine 0.61 mg/dL (0.67-1.17) L 01/20/18 05:17 Est GFR ( Amer) 162.6 (>60) 01/20/18 05:17 Est GFR (Non-Af Amer) 134.4 (>60) 01/20/18 05:17 BUN/Creatinine Ratio 14.8 (8-20) 01/20/18 05:17 Glucose 113 mg/dL (70-100) H 01/20/18 05:17 Lactic Acid 0.8 mmol/L (0.5-2.0) 01/17/18 19:34 Calcium 9.0 mg/dL (8.6-10.3) 01/20/18 05:17 Total Bilirubin 0.90 mg/dL (0.2-1.0) 01/17/18 19:34 AST 18 U/L (13-39) 01/17/18 19:34 ALT 14 U/L (7-52) 01/17/18 19:34 Alkaline Phosphatase 59 U/L (34-104) 01/17/18 19:34 Troponin I 0.00 ng/mL (<0.04) 01/17/18 19:34 Total Protein 7.6 g/dL (6.4-8.9) 01/17/18 19:34 Albumin 4.2 g/dL (3.2-5.2) 01/17/18 19:34 Globulin 3.4 g/dL (2-4) 01/17/18 19:34 Albumin/Globulin Ratio 1.2 (1-3) 01/17/18 19:34 Urine Color Yellow 01/17/18 22:40 Urine Appearance Clear 01/17/18 22:40 Urine pH 6.0 (5-9) 01/17/18 22:40 Ur Specific [place] 1.019 (1.010-1.030) 01/17/18 22:40 Urine Protein Negative (Negative) 01/17/18 22:40 Urine Ketones Trace (Negative) A 01/17/18 22:40 Urine Blood Negative (Negative) 01/17/18 22:40 Urine Nitrate Negative (Negative) 01/17/18 22:40 Urine Bilirubin Negative (Negative) 01/17/18 22:40 Urine Urobilinogen Negative (Negative) 01/17/18 22:40 Ur Leukocyte Esterase Negative (Negative) 01/17/18 22:40 Urine Glucose Negative (Negative) 01/17/18 22:40 Blood Type A Positive 01/17/18 19:34 Antibody Screen Negative 01/17/18 19:34
[2018-01-21 08:37] LABS: White Blood Count 6.2 10^3/ul (3.5-10.8)
[2018-01-21 08:40] VITALS: BP 143/89
[2018-01-21] MEDS: Calcium Citrate TAB* 200 MG PO SCH (09:12)
[2018-01-21] MEDS: PTO:Dorzolamide/Timolol OPTH (NF) 10 ML BOT BOTH EYES SCH (09:12)
--- NOTE | 2018-01-21 22:43 | DS ---
CC: Dr. Jackson; Dr. Andino; Dr. Meraz, Dr. Edmundo Isabel * DISCHARGE SUMMARY: DATE OF ADMISSION: 01/17/18 DATE OF DISCHARGE: 01/21/18 PRIMARY CARE PROVIDER: Dr. Darryn Andino. ATTENDING FOR THIS ADMISSION: Dr. Edmundo Isabel. ATTENDING PROVIDER FOR TODAY: Dr. Je Jackson.* (DICTATED BY FELI IGNACIO NP) HOSPITAL COURSE: This is a very pleasant 62-year-old gentleman who was in his usual state of healthy, reportedly very active. No serious medical history. He has some occasional exercise induced asthma. The patient was uncovering his pool and had a trip and fall accident landing on his left hip. He was unable to stand up and ambulate. The patient states he felt a crack sensation and heard a crunching sensation when he went down and was not able to ambulate thereafter. He was brought in to the emergency department for evaluation. CT of his pelvis on 01/17/18 revealed an impacted fracture of the left femoral neck with an additional oblique fracture line extending from the medial neck of the femur to the greater trochanter laterally with no significant hematoma. The patient was seen by Orthopedics. He underwent ORIF with a gamma nail on 12/01. He had an uneventful intraoperative and postoperative course. The patient was ambulatory on postop day 0, did not have any issues with blood pressure or hemoglobin. He remained stable. Worked well with physical therapy and was cleared for discharge to home today. REVIEW OF SYSTEMS: On the day of discharge, the patient is not complaining of any fever, fatigue, or chills. No chest pain, no shortness of breath. He does have some left hip pain, but he is ambulatory and no further complaints. PHYSICAL EXAMINATION: Today, he is alert, well-appearing. Blood pressure 143/89 , heart rate 86, respiratory rate 18, and O2 saturation 95% on room air with a temperature of 97.6. HEENT: The patient is atraumatic and normocephalic. PERRLA with anicteric sclerae. Oral mucosa is moist. Tongue is midline. Neck is supple and nontender. No JVD noted. No carotid bruits auscultated. Cardiovascular: S1 and S2 present. No murmurs, gallops, or rubs. Rate and rhythm are regular. Lungs are clear bilaterally to auscultation with no wheezing, rhonchi, or rales. Abdomen is soft, nontender, and nondistended. Positive bowel sounds in all 4 quadrants. He is having bowel movements and passing flatus. : Deferred. Musculoskeletal: There is no clubbing and no cyanosis. He has some edema over the surgical site. No erythema is noted. His dressing was clean, dry, and intact. He has +2 distal pulses palpable and a steady gait. Neurologic: He is grossly intact with no focal deficits. Psychiatric: Cooperative and appropriate. LABORATORY DATA: WBC is 6.2, hemoglobin 13.1, hematocrit 36, and platelets 167. Sodium 138, potassium 3.7, chloride 107, CO2 of 23, BUN 9, creatinine 0.61 , GFR is 134.4, glucose 113, lactic acid 0.8, calcium 9.0. Liver function within normal limits. Urinalysis was negative for any acute infective process. IMAGING: CAT scan as noted above. DISCHARGE DIAGNOSES: 1. Mechanical fall with left hip fracture, status post ORIF. 2. History of exercise-induced asthma, stable. 3. History of glaucoma, also stable. DISCHARGE MEDICATIONS: 1. Ventolin inhaler 2 puffs daily and as needed. 2. Cosopt eye drops 1 drop both eyes 2 times a day. 3. Caltrate 150 mg p.o. daily. 4. Aspirin 81 mg daily. 5. Percocet 1 tablet q.6 hours as needed for 5 days. 6. Xarelto 10 mg daily for 30 days. 7. Colace 100 mg q.12 hours as needed. DIET: The patient can have a regular diet. ACTIVITY: Weightbearing as tolerated with no restrictions. FOLLOWUP: The patient was instructed to follow up with Dr. Meraz in the next 10 to 14 days to have beena removed and for a wound check. Also follow up with Dr. Darryn Andino. He has an appointment at 2 p.m. tomorrow. DISPOSITION: The patient will be discharged to home in stable condition. He does not have any skilled needs at this point. He will receive an outpatient physical therapy referral if he decides to pursue that. The patient does live half his time in [place] and the other half of the time in [place]. If he feels that physical therapy would benefit, he will pursue that as an outpatient. The patient was discharged in stable condition. His is present at the time of discharge. They are both in agreement with the plan and state their understanding of the discharge diagnoses, followups, and new medications. FELI IGNACIO, OMAR [id number]/[facility] #: [id number] TANISHA
== END 2018-01-21 11:30 | disposition home or self-care (01) | DRG 308 ==
LOC: ED 17:27 → SSU 20:11
PROVIDERS: ADMIT Hospitalist; ATTEND Internal Medicine
PROC: 0QS706Z Reposition Left Upper Femur with Intramedullary Internal Fixation Device, Open Approach (ICD-10-PCS; principal; 2018-01-19 13:30)
DX: S72.142A Displaced intertrochanteric fracture of left femur, initial encounter for closed fracture (principal); S72.112A Displaced fracture of greater trochanter of left femur, initial encounter for closed fracture; W18.09XA Striking against other object with subsequent fall, initial encounter; Y92.017 Garden or yard in single-family (private) house as the place of occurrence of the external cause; J45.909 Unspecified asthma, uncomplicated; H40.9 Unspecified glaucoma; Z79.82 Long term (current) use of aspirin; Z79.899 Other long term (current) drug therapy; Z82.49 Family history of ischemic heart disease and other diseases of the circulatory system; Z83.511 Family history of glaucoma
CPT/HCPCS: 36415; 71045; 72192; 80048; 80053; 81003; 83605; 84484; 85014; 85018; 85025; 85048; 85049; 85610; 85730; 86850; 86900; 86901; 93005; 99283; A9270-GY; G8978-GP-CI; G8979-GP-CI; J0690; J1100; J1644; J2250; J2270; J2704; J3010